=== PATIENT | male | born 1945 | race Hispanic/Latino ===

== ENCOUNTER 2018-09-20 14:48 | Emergency (ER) | payer MEDICARE ==
--- NOTE | 2018-09-20 16:06 | Event Note ---
ED Screening Note ED Screening Note: pt states that a cabinet fell onto his right shoulder that occurred at 1 PM today never injured before no numbness or weakness states has tingling in his arm This initial assessment/diagnostic orders/clinical plan/treatment(s) is/are subject to change based on patients health status, clinical progression and re- assessment by fellow clinical providers in the ED. Further treatment and workup at subsequent clinical providers discretion. Patient/guardian urged not to elope from the ED as their condition may be serious if not clinically assessed and managed. Initial orders include: XR of the right shoulder
--- NOTE | 2018-09-20 17:00 | XRay Report ---
RIGHT SHOULDER 3 VIEWS INDICATION / CLINICAL INFORMATION: cabinet fell onto right shoulder. COMPARISON: None available. 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 The humeral head abuts the acromion suggestin g a rotator cuff tear. No other significant skeletal abnormality. Signer Name: Mendez WELLER Signed: 09/20/2018 4:55 PM Workstation Name: [id number]
[2018-09-20] MEDS ORDERED: IBUPROFEN PO ONE (19:42)
[2018-09-20] MEDS ORDERED: ZOFRAN ODT PO ONE (19:42)
[2018-09-20] MEDS ORDERED: NORCO 7.5/325 PO ONE (19:42)
[2018-09-20 20:24] VITALS: BP 137/71
--- NOTE | 2018-09-20 20:27 | Emergency Department Report ---
ED Upper Extremity Inj HPI - General Chief Complaint: Shoulder Injury Stated Complaint: R SHOULDER PAIN Time Seen by Provider: 09/20/18 16:05 Source: patient, EMS Mode of arrival: Ambulatory Limitations: No Limitations - History of Present Illness Initial Comments: Patient is a 73-year-old white male with a history of hypertension and hypercholesterolemia who presents to the ED with complaint of acute onset persistent severe right shoulder pain with limited range of motion due to pain after a heavy cabinet fell and hit him on the right shoulder about 8 hours ago at home. Patient states that he was trying to put some utensils into the cabinet when it fell on his right shoulder. Patient states that the pain in the right shoulder has worsened in the last 6 hours, and that in active range of motion of the right shoulder makes the pain worse. Patient denies neck pain, head injury, fall, syncope, chest pain, shortness of breath, numbness and ti ngling or weakness of right arm. MD Complaint: Injury to:: right, shoulder -: Sudden, hour(s) (8), This afternoon Other Extremity Injury: Shoulder: Right (pain with limited ROM due to pain) Other Injuries: none Handedness: right Place: home Severity scale (0 -10): 7 Improves With: immobilization, rest Worsens With: movement of extremity Context: direct blow (wooden cabinets fell and hit him on right shoulder), injury Associated Symptoms: denies other symptoms. denies: weakness, numbness, neck pain, suspects foreign body, nausea/vomiting, heard/felt popping sensat - Related Data Home Medications Medication Instructions Recorded Confirmed Last Taken AtorvaSTATin [Lipitor] 40 mg PO QHS 01/16/17 01/16/17 1 Day Ago ~01/15/17 Omeprazole 1 tab PO DAILY 01/16/17 01/16/17 1 Day Ago ~01/15/17 amLODIPine [Norvasc] 10 mg PO DAILY 01/16/17 01/16/17 1 Day Ago ~01/15/17 metFORMIN [Glucophage] 500 mg PO BID 01/16/17 01/16/17 1 Day Ago ~01/15/17 Previous Rx's Medication Instructions Recorded Last Taken Type oxyCODONE /ACETAMINOPHEN [Percocet 2 tab PO Q6HR PRN #30 tablet 01/18/17 Unknown Rx 5/325] HYDROcodone/APAP 5-325 [[place] 1 each PO Q6HR PRN 3 Days #12 09/20/18 Unknown Rx 5/325] tablet Ibuprofen [Motrin] 800 mg PO Q8HR PRN #20 tablet 09/20/18 Unknown Rx Ondansetron [Zofran Odt] 4 mg PO Q6HR PRN #15 tab.rapdis 09/20/18 Unknown Rx Allergies Allergy/AdvReac Type Severity Reaction Status Date / Time No Known Allergies Allergy Verified 09/20/18 15:04 ED Review of Systems ROS: Stated complaint: R SHOULDER PAIN Other details as noted in HPI Constitutional: denies: chills, fever Eyes: denies: eye pain, eye discharge, vision change ENT: denies: ear pain, throat pain Respiratory: denies: cough, shortness of breath, wheezing Cardiovascular: denies: chest pain, palpitations Endocrine: no symptoms reported Gastrointestinal: denies: abdominal pain, nausea, diarrhea Genitourinary: denies: urgency, dysuria Musculoskeletal: arthralgia (right shoulder pain). denies: back pain, joint swelling Skin: denies: rash, lesions Neurological: denies: headache, weakness, paresthesias Psychiatric: denies: anxiety, depression Hematological/Lymphatic: denies: easy bleeding, easy bruising ED Past Medical Hx - Past Medical History Hx Hypertension: Yes (2013) Hx Diabetes: Yes - Social History Smoking Status: Never Smoker Substance Use Type: None - Medications Home Medications: Home Medications Medication Instructions Recorded Confirmed Last Taken Type AtorvaSTATin [Lipitor] 40 mg PO QHS 01/16/17 01/16/17 1 Day Ago History ~01/15/17 Omeprazole 1 tab PO DAILY 01/16/17 01/16/17 1 Day Ago History ~01/15/17 amLODIPine [Norvasc] 10 mg PO DAILY 01/16/17 01/16/17 1 Day Ago History ~01/15/17 metFORMIN [Glucophage] 500 mg PO BID 01/16/17 01/16/17 1 Day Ago History ~01/15/17 oxyCODONE /ACETAMINOPHEN [Percocet 2 tab PO Q6HR PRN #30 tablet 01/18/17 Unknown Rx 5/325] HYDROcodone/APAP 5-325 [[place] 1 each PO Q6HR PRN 3 Days #12 09/20/18 Unknown Rx 5/325] tablet Ibuprofen [Motrin] 800 mg PO Q8HR PRN #20 tablet 09/20/18 Unknown Rx Ondansetron [Zofran Odt] 4 mg PO Q6HR PRN #15 tab.rapdis 09/20/18 Unknown Rx ED Physical Exam - General Limitations: No Limitations General appearance: alert, in no apparent distress - Head Head exam: Present: atraumatic, normocephalic, normal inspection - Eye Eye exam: Present: normal appearance, PERRL, EOMI. Absent: scleral icterus, nystagmus Pupils: Present: normal accommodation - ENT ENT exam: Present: normal exam, normal orophraynx, mucous membranes moist, TM's normal bilaterally, normal external ear exam - Neck Neck exam: Present: normal inspection, full ROM - Respiratory Respiratory exam: Present: normal lung sounds bilaterally. Absent: respiratory distress, wheezes, rales, stridor, chest wall tenderness, accessory muscle use, decreased breath sounds, prolonged expiratory - Cardiovascular Cardiovascular Exam: Present: normal rhythm, bradycardia, normal heart sounds. Absent: systolic murmur, diastolic murmur, rubs, gallop - GI/Abdominal GI/Abdominal exam: Present: soft, normal bowel sounds. Absent: distended, tenderness, guarding, hyperactive bowel sounds, hypoactive bowel sounds, organomegaly - Rectal Rectal exam: Present: deferred - Extremities Exam Extremities exam: Present: normal inspection, tenderness (right shoulder tenderness with limited ROM due to pain), normal capillary refill. Absent: full ROM (due to pain) - Back Exam Back exam: Present: normal inspection, full ROM. Absent: tenderness, CVA tenderness (L), muscle spasm, paraspinal tenderness, vertebral tenderness - Neurological Exam Neurological exam: Present: alert, oriented X3, CN II-XII intact, normal gait, reflexes normal - Psychiatric Psychiatric exam: Present: normal affect, normal mood - Skin Skin exam: Present: warm, dry, intact, normal color. Absent: rash ED Course Vital Signs 09/20/18 09/20/18 16:05 20:05 Temperature 98.0 F Pulse Rate 59 L Respiratory 16 18 Rate Blood Pressure 119/63 O2 Sat by Pulse 94 Oximetry - Reevaluation(s) Reevaluation #1: 09/20/18 20:27 Patient is alert and oriented 3 and is not in distress with normal vital signs. Patient was treated for pain in the ED and a right shoulder x-ray shows advanced degenerative change in the glenohumeral joint. The humeral head abuts the acromion suggesting rotator cuff tear. On reevaluation, patient's pain is well controlled and right shoulder immobilizer splint was applied on the right shoulder and the patient was discharged home on pain medications and given a referral to the orthopedic surgeon physician surgeon Dr. Hayes for follow-up. Patient advised to contact Dr. Hayes's office first thing on Sunday09/23/2018 to schedule an appointment for follow-up. Patient was advised to return to the ED immediately if symptoms get worse. 09/20/18 20:28 ED Medical Decision Making - Radiology Data Radiology results: report reviewed, image reviewed Right shoulder x-ray shows advanced degenerative change in the glenohumeral joint. The humeral head abuts the acromion suggesting rotator cuff tear. - Medical Decision Making Patient is alert and oriented 3 and is not in distress with normal vital signs. Patient was treated for pain in the ED and a right shoulder x-ray shows advanced degenerative change in the glenohumeral joint. The humeral head abuts the acromion suggesting rotator cuff tear. On reevaluation, patient's pain is well controlled and right shoulder immobilizer splint was applied on the right shoulder and the patient was discharged home on pain medications and given a re ferral to the orthopedic surgeon physician surgeon Dr. Hayes for follow-up. Patient advised to contact Dr. Hayes's office first thing on Sunday09/23/2018 to schedule an appointment for follow-up. Patient was advised to return to the ED immediately if symptoms get worse - Differential Diagnosis Shoulder contusion; shoulder rotator cuff tear; shoulder fracture Critical care attestation.: If time is entered above; I have spent that time in minutes in the direct care of this critically ill patient, excluding procedure time. ED Disposition Clinical Impression: Traumatic tear of right rotator cuff Qualifiers: Rotator cuff tear extent: unspecified tear extent Encounter type: initial encounter Qualified Code(s): S46.011A - Strain of muscle(s) and tendon(s) of the rotator cuff of right shoulder, initial encounter Sprain of right shoulder Qualifiers: Encounter type: initial encounter Shoulder sprain type: rotator cuff capsule Qualified Code(s): S43.421A - Sprain of right rotator cuff capsule, initial encounter Disposition: DC-01 TO HOME OR SELFCARE Is pt being admited?: No Does the pt Need Aspirin: No Condition: Stable Instructions: Rotator Cuff Injury (ED), Shoulder Sprain (ED) Additional Instructions: Physical medications with food, drink plenty of fluids and follow-up with Dr. Hayes, the orthopedic surgeon physician surgeon for further evaluation. Contact Dr. Hayes's office first thing on 09/23/2018 to schedule an appointment for follow-up. Return to the ED immediately if symptoms get worse. Prescriptions: Ibuprofen [Motrin] 800 mg PO Q8HR PRN #20 tablet PRN Reason: Pain , Severe (7-10) HYDROcodone/APAP 5-325 [[place] 5/325] 1 each PO Q6HR PRN 3 Days #12 tablet PRN Reason: Pain Ondansetron [Zofran Odt] 4 mg PO Q6HR PRN #15 tab.rapdis PRN Reason: Nausea Referrals: ALISA HAYES MD [Staff Physician] - 2-3 Days Time of Disposition: 20:36 Print Language: [place]
== END 2018-09-20 21:13 | disposition home or self-care (01) ==
LOC: ED 14:48
DX: S43.421A Sprain of right rotator cuff capsule, initial encounter (principal); S46.011A Strain of muscle(s) and tendon(s) of the rotator cuff of right shoulder, initial encounter; I10 Essential (primary) hypertension; E11.9 Type 2 diabetes mellitus without complications; Z79.899 Other long term (current) drug therapy; E78.00 Pure hypercholesterolemia, unspecified; W20.8XXA Other cause of strike by thrown, projected or falling object, initial encounter; Y93.89 Activity, other specified; Y92.098 Other place in other non-institutional residence as the place of occurrence of the external cause; Y99.8 Other external cause status
CPT/HCPCS: 99284; Q0162